=== PATIENT | male | born 1985 | race Two or more races ===

== ENCOUNTER 2019-07-31 12:19 | Emergency (ER) | payer OTHER ==
[~2019-07-31] VITALS: Ht 165.1 cm; Wt 68.0 kg
[2019-07-31 12:45] VITALS: BP 121/72
--- NOTE | 2019-07-31 13:05 | NUR ---
ED Nurse Note: Patient presents to ER due to posterior head injury. Patient was getting lares gayle from shelf and it fell onto his head. Patient sustained injury to the affected area and no active bleeding noted. Reports no loss of consciousiness. Patient awake, alert, oriented x 4. Ambulatory. Speech is clear. Placed patient in chair.
--- NOTE | 2019-07-31 13:21 | Diagnostic Imaging Report ---
Indications: Head trauma, status post fall, hit in the back of the head with frying gayle Technique: Spiral acquisitions obtained through the brain. Angled axial and coronal 5 x 5 mm slices were reconstructed. Total dose length product 1334 mGycm. CTDI vol(s) 60 mGy. Dose reduction achieved using automated exposure control Comparison: None. Findings: No acute intracranial hemorrhage or edema. Normal jenkins-white differentiation. Normal size ventricles and extra-axial CSF spaces. Intact calvarium. Visualized orbits and sinuses are unremarkable. The mastoids are clear. Impression: Negative The CT scanner at [facility] is accredited by the [employer] and the scans are performed using protocols designed to limit radiation exposure to as low as reasonably achievable to attain images of sufficient resolution adequate for diagnostic evaluation.
--- NOTE | 2019-07-31 13:28 | Emergency Room Report ---
History of Present Illness General Chief Complaint: Head Injury Source: Patient Present Illness HPI 34-year-old [place]ian-speaking male here complaining of headache and dizziness after head trauma earlier today at work. Patient reports that an empty frying gayle fell from a shelf and hit the back of his head. Patient denies loss of consciousness, however does complain of dizziness and headache at this time rating the headache 10 out of 10. Complains of nausea but denies vomiting. Denies blurry vision, fatigue. Small superficial laceration noted in the occipital region with minimal bleeding. Patient is up-to-date with tetanus shot. Has not taken medication for symptom relief. Denies all other injuries. No neurological, motor or sensory deficits noted. Allergies: Coded Allergies: No Known Allergies (Unverified , 07/31/19) Patient History Past Medical History: see triage record Past Surgical History: unable to obtain Pertinent Family History: none Immunizations: UTD Reviewed Nursing Documentation: PMH: Agreed; PSxH: Agreed Nursing Documentation-PMH Past Medical History: No Stated History Review of Systems All Other Systems: negative except mentioned in HPI Physical Exam Vital Signs Date Time Temp Pulse Resp B/P (MAP) Pulse Ox O2 Delivery O2 Flow Rate FiO2 07/31/19 12:45 98.2 16 121/72 95 Room Air 07/31/19 12:45 63 Sp02 EP Interpretation: reviewed, normal General Appearance: no apparent distress, alert, GCS 15, non-toxic Head: normocephalic, other - Superficial laceration of occipital region Eyes: bilateral eye normal inspection, bilateral eye PERRL ENT: hearing grossly normal, normal pharynx, no angioedema, normal voice Neck: full range of motion, supple, thyroid normal, no meningismus, no bony tend, supple/symm/no masses Respiratory: chest non-tender, lungs clear, normal breath sounds, no rhonchi, no wheezing, speaking full sentences Cardiovascular #1: regular rate, rhythm, no edema, no murmur Gastrointestinal: non tender, soft Musculoskeletal: back normal, normal range of motion, no calf tenderness, gait/ station normal, non-tender Neurologic: alert, motor strength/tone normal, oriented x3, sensory intact, responsive, speech normal Psychiatric: judgement/insight normal, memory normal, mood/affect normal, no suicidal/homicidal ideation Skin: laceration - Superficial laceration occipital head Lymphatic: normal inspection, no adenopathy Procedures Laceration/Wound Repair Laceration/Wound Repair : Consent: Verbal Wound Location: head Wound's Depth, Shape: superficial Wound Length (cm): 1 Wound Explored: contaminated Irrigated w/ Saline (ccs): 10 Betadine Prep?: No Wound Debrided: None Wound Repaired With: milagro Number of Sutures: 3 Layer Closure?: Yes Sterile Dressing Applied?: Yes Splint Applied?: No Sling Applied?: No Patient Tolerated: Well Complications: None Medical Decision Making PA Attestation All my diagnosis and treatment plans were reviewed ad discussed with my supervising physician Dr. Montaño Diagnostic Impression: Primary Impression: Head contusion Additional Impression: Occipital scalp laceration ER Course 34-year-old Bel[place]ian-speaking male here complaining of headache and dizziness after head trauma earlier today at work. Patient reports that an empty frying gayle fell from a shelf and hit the back of his head. Patient denies loss of consciousness, however does complain of dizziness and headache at this time rating the headache 10 out of 10. Complains of nausea but denies vomiting. Denies blurry vision, fatigue. Small superficial laceration noted in the occipital region with minimal bleeding. Patient is up-to-date with tetanus shot. Has not taken medication for symptom relief. Denies all other injuries. No neurological, motor or sensory deficits noted. Ddx considered but are not limited to: cerebral hematoma, concussion, skull fracture, head contusion, superficial laceration, deep laceration with foreign body Vital signs: are WNL, pt. is afebrile H&PE are most consistent with: Superficial laceration of occipital head without foreign body, head contusion ORDERS: head CT no contrast, Motrin, Zofran ED INTERVENTIONS: Wound clean and dressed, milagro placed in DISCHARGE: At this time pt. is stable for d/c to home. Will provide printed patient care instructions, and any necessary prescriptions. Care plan and follow up instructions have been discussed with the patient prior to discharge. Loami to be removed in 7 to 10 days. If worsening symptoms return to the emergency room. CT/MRI/US Diagnostic Results CT/MRI/US Diagnostic Results : Imaging Test Ordered: Head CT no contrast Impression No intracranial bleed, no skull fracture Last Vital Signs Date Time Temp Pulse Resp B/P (MAP) Pulse Ox O2 Delivery O2 Flow Rate FiO2 07/31/19 12:45 98.2 63 16 121/72 (88) 95 Room Air Disposition: HOME, SELF-CARE Condition: Stable Scripts Ondansetron (Zofran) 4 Mg Tablet 4 MG ORAL Q6H PRN for Nausea & Vomiting, #10 TAB Prov: Anyi Franz 07/31/19 Ibuprofen* (MOTRIN*) 600 Mg Tablet 600 MG ORAL Q8H PRN for For Pain, #30 TAB 0 Refills Prov: Anyi Franz 07/31/19 Patient Instructions: Facial or Scalp Contusion, [id number], Laceration Care , Adult Additional Instructions: Take medication as directed, follow-up with your primary care provider, milagro to be removed in 7 to 10 days. If worsening symptoms return to the emergency room Anyi Franz Jul 31, 2019 13:28
[2019-07-31] MEDS ORDERED: IBUPROFEN600 MG ORAL (13:29)
[2019-07-31] MEDS ORDERED: ZOFRAN4 M1 ORAL (13:29)
--- NOTE | 2019-07-31 13:30 | NUR ---
ED Nurse Note: [place] applied by Xiomy De Santiago Patient tolerated the procedure with minimal discomfort.
--- NOTE | 2019-07-31 14:41 | NUR ---
ER DISCHARGE NOTE: Patient is cleared to be discharged per P.A.. D/C instruction and prescription given by Xiomy De Santiago in occitan. Patient verbalize understanding of it. ID band removed. Patient ambulated out with steady gait with all his belongings.
== END 2019-07-31 14:41 | disposition home or self-care (01) ==
LOC: EMR 12:54
DX: S01.01XA Laceration without foreign body of scalp, initial encounter (principal); W22.8XXA Striking against or struck by other objects, initial encounter; Y93.89 Activity, other specified; Y92.9 Unspecified place or not applicable
CPT/HCPCS: 70450; 99284

== ENCOUNTER 2019-08-10 11:44 | Emergency (ER) | payer OTHER ==
[~2019-08-10] VITALS: Ht 165.1 cm; Wt 72.6 kg
[~2019-08-10 11:44] MED LIST: IBUPROFEN600 MG ORAL; ZOFRAN4 M1 ORAL
--- NOTE | 2019-08-10 12:01 | Emergency Room Report ---
History of Present Illness General Chief Complaint: Wound Recheck/Suture Removal Source: Patient Present Illness HPI Patient is a 34-year-old male presents for wound recheck. Patient had milagro to his occipital area approximately 1 week ago. He denies any current complaints. He denies any fever or discharge. He denies any significant headache or vomiting. Allergies: Coded Allergies: No Known Allergies (Unverified , 07/31/19) Patient History Past Medical History: see triage record Reviewed Nursing Documentation: PMH: Agreed; PSxH: Agreed Nursing Documentation-PMH Past Medical History: No Stated History Review of Systems All Other Systems: negative except mentioned in HPI Physical Exam Vital Signs Date Time Temp Pulse Resp B/P (MAP) Pulse Ox O2 Delivery O2 Flow Rate FiO2 08/10/19 11:49 98.2 68 20 116/69 (85) 97 Room Air General Appearance: well appearing, no apparent distress, alert, GCS 15 Head: normocephalic, atraumatic ENT: hearing grossly normal, normal voice Neck: full range of motion, supple Respiratory: no respiratory distress, speaking full sentences Musculoskeletal: normal inspection, gait/station normal, no calf tenderness Neurologic: alert, motor strength/tone normal, bellstaff III-XII nml as tested, oriented x3, normal gait Psychiatric: mood/affect normal Skin: no rash Medical Decision Making Diagnostic Impression: Primary Impression: Encounter for wound re-check ER Course Patient presented for wound check. Differential diagnosis included was not limited to healed wounds, infection, among others. Patient has benign exam does not appear to require any further management. Wound appears well-healed and milagro milagro were removed. Patient be discharged home is to follow-up with his primary care physician as needed. Last Vital Signs Date Time Temp Pulse Resp B/P (MAP) Pulse Ox O2 Delivery O2 Flow Rate FiO2 08/10/19 11:49 98.2 68 20 116/69 (85) 97 Room Air Status: improved Disposition: HOME, SELF-CARE Condition: Stable Oswald Corbett MD Aug 10, 2019 12:00
[2019-08-10 12:05] VITALS: BP 113/70
[2019-08-10 12:16] VITALS: BP 122/67
== END 2019-08-10 13:00 | disposition home or self-care (01) ==
LOC: EMR 12:41
DX: Z48.02 Encounter for removal of sutures (principal)
CPT/HCPCS: 99281